=== PATIENT | female | born 2005 | race Caucasian/White ===

== ENCOUNTER 2024-06-29 21:34 | Emergency (ER) | payer BC ==
[~2024-06-29] VITALS: Ht 167.6 cm; Wt 67.0 kg
[2024-06-29 21:38] VITALS: O2SAT 98
[2024-06-29] MEDS ORDERED: LORAZEPAM 1MG TABLET PO ONE (22:00)
[2024-06-29 23:01] LABS: CARBON DIOXIDE 25 mEq/L (21-32); CHLORIDE 107 mEq/L (98-107); POTASSIUM 3.6 mEq/L (3.5-5.1); SODIUM 140 mEq/L (136-145)
[2024-06-29 23:02] LABS: CALCIUM 9.8 mg/dL (8.7-10.4)
[2024-06-29 23:03] LABS: BASOPHILS % 0.2 % (0.0-2.0); EOSINOPHILS % 0.1 % (0.0-5.0); HEMATOCRIT. 38.4 % (36.0-48.0); LYMPHOCYTES % 11.4 % (20.0-50.0); MEAN CORPUSCULAR HEMOGLOBIN 30.8 pg (28.0-32.0); MEAN CORPUSCULAR HGB CONC 33.9 g/dL (31.0-37.0); MEAN CORPUSCULAR VOLUME 90.8 fL (81.0-99.0); MEAN PLATELET VOLUME 8.3 fl (7.4-10.4); MONOCYTES % 7.9 % (2.0-8.0); NEUTROPHILS % 80.4 % (40.0-76.0); PLATELET 264 x1000/uL (130-400); RED BLOOD CELL COUNT 4.23 mill/uL (4.2-5.4); RED CELL DISTRIBUTION WIDTH 13.3 % (11.6-14.6); WHITE BLOOD COUNT 12.7 x1000/uL (4.5-11.0)
[2024-06-29 23:06] LABS: CREATININE 0.8 mg/dL (0.6-1.0); GLUCOSE 100 mg/dL (70-105)
[2024-06-29 23:07] LABS: UREA NITROGEN BLOOD 9 mg/dL (9-23)
[2024-06-29 23:10] LABS: ETHANOL BLOOD < 10 mg/dL (<10)
[2024-06-29 23:13] LABS: PROTHROMBIN TIME 10.9 sec (9.6-11.0)
[2024-06-30] MEDS: LORAZEPAM 1MG TABLET PO NR (00:02)
[2024-06-30] MEDS: SODIUM CHLORIDE 0.9% 1,000 ML IV ONE (00:02)
[2024-06-30 00:52] VITALS: BP 110/80; PULSE 77; RESP 19; TEMP 36.72516; O2SAT 100
== END 2024-06-30 04:49 | disposition home or self-care (01) ==
LOC: ER 21:34
DX: R00.2 Palpitations (principal); R42 Dizziness and giddiness; F12.10 Cannabis abuse, uncomplicated
CPT/HCPCS: 80048; 80320; 85025; 85610; 36415; 71045; 93005; 99285; J7030; G0480